=== PATIENT | female | born 1940 | race Caucasian/White ===

== ENCOUNTER → 2023-09-01 10:27 | Outpatient (REF) | payer OTHER, SELFPAY | LOC: HWRAD 10:27 | PROVIDERS: ATTENDING PHYSICIAN Orthopaedic Surgery Hand Surgery; FAMILY PHYSICIAN Family Medicine | DX: M25.512 Pain in left shoulder (principal) | CPT/HCPCS: 73200 ==

== ENCOUNTER → 2024-01-23 12:33 | Outpatient (REF) | payer OTHER, SELFPAY ==
[2023-11-10 13:38] VITALS: BMI 45.0
[2023-11-10 14:51] LABS: Hematocrit 37.8 % (37.0-47.0); Hemoglobin 13.6 g/dL (12.0-16.0); Mean Corpuscular Hgb 33.5 pg (27.0-31.0); Mean Corpuscular Volume 93.1 fL (81.0-99.0); Mean Platelet Volume 9.8 fL (7.4-10.4); Platelet Count 208 10^3/uL (130-400); Red Blood Cell Count 4.06 10^6/uL (4.20-5.40); Red Cell Dist. Width 11.4 % (11.5-14.5); White Blood Cell Count 9.4 10^3/uL (4.8-10.8)
[2023-11-10 15:28] LABS: ALT (SGPT) 21 U/L (0-35); AST (SGOT) 25 U/L (14-36); Albumin 4.3 g/dl (3.5-5.0); Alkaline Phosphatase 95 U/L (38-126); Blood Urea Nitrogen 30 mg/dl (7-17); Calcium 10.4 mg/dl (8.4-10.2); Carbon Dioxide 21 mmol/L (22-30); Chloride 104 mmol/L (98-107); Estimated Creatinine Clearance 33 ml/min; Glucose 131 mg/dl (70-99); Potassium 4.7 mmol/L (3.5-5.1); Sodium 141 mmol/L (135-145); Total Bilirubin 0.5 mg/dl (0.2-1.3); Total Protein 6.7 g/dl (6.3-8.2); eGFR 37.33
[2023-11-11 09:14] LABS: Glycohemoglobin (HgbA1c) 7.4 % (4.0-5.6)
== END ==
LOC: REG 12:33
PROVIDERS: ATTENDING PHYSICIAN Orthopaedic Surgery Hand Surgery; FAMILY PHYSICIAN Family Medicine
DX: M19.012 Primary osteoarthritis, left shoulder (principal)
CPT/HCPCS: 36415; 80053; 83036; 85027; 87070; 93005

== ENCOUNTER 2024-03-27 23:33 | Inpatient (IN) | payer OTHER, SELFPAY ==
[2024-03-27 20:05] VITALS: BP 240/109
[2024-03-27 20:41] VITALS: BMI 40.9
[2024-03-27 20:43] VITALS: BP 176/78
[2024-03-27 21:00] VITALS: BP 204/83
[2024-03-27 21:03] LABS: % Basophils 0.5 % (0-2); % Immature Granulocytes 0.4 % (0-0.5); % Lymphocytes 12.3 % (20.5-51.1); % Monocytes 5.5 % (1.7-9.3); % Neutrophils 78.3 % (42.2-75.2); Absolute Basophils 0.1 10^3/uL (0-0.2); Absolute Eosinophils 0.3 10^3/uL (0-0.7); Absolute Lymphocytes 1.2 10^3/uL (1.2-3.4); Absolute Monocytes 0.5 10^3/uL (0.1-0.6); Absolute Neutrophils 7.7 10^3/uL (1.4-6.5); Hematocrit 37.5 % (37.0-47.0); Mean Corp Hgb Conc. 34.7 g/dL (33.0-37.0); Mean Corpuscular Hgb 33.4 pg (27.0-31.0); Mean Corpuscular Volume 96.4 fL (81.0-99.0); Mean Platelet Volume 9.1 fL (7.4-10.4); Nucleated Red Blood Cells % 0 %; Platelet Count 187 10^3/uL (130-400); Red Blood Cell Count 3.89 10^6/uL (4.20-5.40); Red Cell Dist. Width 11.8 % (11.5-14.5); White Blood Cell Count 9.8 10^3/uL (4.8-10.8)
[2024-03-27 21:15] LABS: ALT (SGPT) 15 U/L (0-35); AST (SGOT) 21 U/L (14-36); Albumin 3.8 g/dl (3.5-5.0); Alkaline Phosphatase 92 U/L (38-126); Blood Urea Nitrogen 23 mg/dl (7-17); Calcium 9.4 mg/dl (8.4-10.2); Carbon Dioxide 25 mmol/L (22-30); Chloride 100 mmol/L (98-107); Estimated Creatinine Clearance 40 ml/min; Glucose 177 mg/dl (70-99); Lipase 96 U/L (23-300); Potassium 4.2 mmol/L (3.5-5.1); Sodium 134 mmol/L (135-145); Total Bilirubin 0.6 mg/dl (0.2-1.3); Total Protein 6.1 g/dl (6.3-8.2); eGFR 44.91
[2024-03-27 22:21] LABS: Urine Albumin Negative (Neg - Trace); Urine Bilirubin Negative (Negative); Urine Character Clear (Clear); Urine Color Straw; Urine Glucose Negative (Negative); Urine Ketone Negative (Negative); Urine Leukocyte 1+ (Negative); Urine Nitrite Positive (Negative); Urine Occult Blood Trace (Negative); Urine Urobilinogen Negative (Neg - 1+); Urine pH 6.5 (5.0-9.0)
[2024-03-27 22:29] LABS: Urine Bacteria Many (Negative); Urine White Cell 26-30 /HPF (0-5)
[2024-03-27 23:00] VITALS: BP 206/96
--- NOTE | 2024-03-27 23:01 | ED.GENMED ---
History of Present Illness
<Jose Boyce, DO - Last Filed: 03/27/24 23:16>
General
Chief Complaint: Abdominal Pain
Time Seen by Provider: 03/27/24 21:28
<Hayde Turk [employer] - Last Filed: 03/27/24 23:36>
General
Source: patient
Exam Limitations: none
Nursing documentation reviewed up to this point in time: agreed with
History of Present Illness
History of Present Illness:
Patient to ED with complaint of RLQ abd. pain. Pain started this afternoon. +nausea, no vomiting or diarrhea. No prior history of same. Denies fever/chills.
Past History
<Jose Boyce DO - Last Filed: 03/27/24 23:16>
Past History
ED Past Medical History: Cancer, HTN, Hypercholesterolemia and NIDDM
ED Past Surgical History: Gynecological and Orthopedic
Social History
Tobacco: Non-smoker
Alcohol: None
Drug: None
Personal: Single
Living: alone
Employment: Retired
Review of Systems
<Hayde Turk [employer] - Last Filed: 03/27/24 23:36>
Review of Systems
Allergies reviewed?: Yes
All Other Systems: ROS reviewed and negative except as documented in HPI and ROS
Constitutional: Reports no symptoms
EENT: Reports no symptoms
Respiratory: Reports no symptoms
Cardiac: Reports no symptoms
ABD/GI: Reports abdominal pain (RLQ)
: Reports no symptoms
Musculoskeletal: Reports no symptoms
Skin: Reports no symptoms
Neurological: Reports no symptoms
Psychiatric: Reports no symptoms
Phy Exam
<Hayde Turk [employer] - Last Filed: 03/27/24 23:36>
General Physical Exam
General Presentation: well appearing and mild distress
General age: appears stated age
General Skin: warm and dry
General Habitus: normal
General Mental: alert
Cardiovascular Exam
Cardiovascular Exam: regular rate/rhythm and no edema
Pulmonary Exam
Pulmonary Exam: lungs clear and no respiratory distress
Gastrointestinal Exam
Gastrointestinal Exam: normal bowel sounds, no pulsatile mass and other (Large firm mass RLQ)
Palpation: left upper quadrant: No tenderness, left lower quadrant: No tenderness, right upper quadrant: Moderate tenderness and right lower quadrant: Moderate tenderness
Musculoskeletal Exam
Musculoskeletal Exam: full ROM and neuro vasc intact
Skin Exam
Skin Exam: normal color, warm/dry and no rash
Psychiatric Exam
Psychiatric Exam: normal mood/affect
Course
<Jose Boyce, DO - Last Filed: 03/27/24 23:16>
Orders/Labs/Results
Orders:
Orders
03/27/24 20:55
Complete Blood Count/With Diff Urgent
Comprehensive Metabolic Panel Urgent
Lipase Urgent
03/27/24 21:36
CT Abd/pelvis W Iv Cont Urgent
Comment:
Reason For Exam: Right lower abd. pain
03/27/24 22:11
Urinalysis Reflex To Culture Urgent
Date Specimen was Collected: 03/27/24
Time Specimen was Collected: 22:08
Urine Microscopic Reflex Cult Urgent
Urine Culture Urgent
BRENDAN Source: U
Specimen Description:
Date Specimen was Collected: 03/27/24
Time Specimen was Collected: 22:08
03/27/24 23:09
Piperacillin/Tazo 4.5 Gram [Zosyn] 4.5 gram in 100 ml IV NOW
03/27/24 23:10
0.9% Sodium Chloride 1000 ml [Nss] 1,000 ml IV BOLUS
03/27/24 23:14
Lactic Acid Urgent
03/27/24 23:31
Admit/Transfer Patient As Directed
Co-Sign Provider:
Level of Care: Inpatient admission
Assign to:: Medical/Surgical
Physician / Group: latasha
Diagnosis: SBO
Reason for Hospitalization: SBO
Expected length of stay greater than two midnights?: Yes
ELOS- Estimated Length of Stay in days: 2
I certify the patient meets the requirements for IP care: Yes
Code Status As Directed
Resuscitation Status: Do not resuscitate
Reached after discussion with pt or family/Healthcare POA: Yes
DNR Bracelet Application ONCE
PRN Pain Medication Management As Directed
May give lesser potent ordered pain med per pt: Yes
preference::
Protocol:: Medication orders for pain may be administered in a
manner that supports deferring to patient preference
when the pt is:
- Requesting an ordered lesser potent pain medication.
Least to most potent pain medications are defined
as: acetaminophen < NSAID < tramadol < opioids
(morphine, oxycodone, hydromorphone).
- Requesting a lesser dose of the same medication IF
ORDERED.
- Requesting a less intrusive route of administration
if both routes are prescribed by the provider (PO <
IV).
Abnormal Lab Results
03/27/24 03/27/24
20:55 22:11
RBC 3.89 L 10^6/uL
(4.20-5.40)
MCH 33.4 H pg
(27.0-31.0)
Absolute Neuts (auto) 7.7 H 10^3/uL
(1.4-6.5)
Neutrophils % 78.3 H %
(42.2-75.2)
Lymphocytes % 12.3 L %
(20.5-51.1)
Sodium 134 L mmol/L
(135-145)
BUN 23 H mg/dl
(7-17)
Creatinine 1.2 H mg/dL
(0.6-1.0)
Glucose 177 H mg/dl
(70-99)
Total Protein 6.1 L g/dl
(6.3-8.2)
Ur Occult Blood Reflex Trace A
(Negative)
Urine Nitrite (Reflex) Positive A
(Negative)
Leukocyte Esterase Rfl 1+ A
(Negative)
Urine RBC 3-6 A /HPF
(0-2)
Urine WBC (Reflex) 26-30 A /HPF
(0-5)
Urine Bacteria (Reflex) Many A
(Negative)
03/27/24 20:55
03/27/24 20:55
Vital Signs
Initial and Last Documented VS:
Initial Vital Signs
Temp Pulse Resp BP Pulse Ox
98.4 F 85 20 240/109 98
03/27/24 20:05 03/27/24 20:05 03/27/24 20:05 03/27/24 20:05 03/27/24 20:05
Last Documented Vital Signs
Temp Pulse Resp BP Pulse Ox
98.6 F 89 20 206/96 98
03/27/24 20:43 03/27/24 23:30 03/27/24 23:30 03/27/24 23:00 03/27/24 23:30
Junelt;Hayde Turk NP - Last Filed: 03/27/24 23:36>
Orders/Labs/Results
Orders:
Orders
03/27/24 20:55
Complete Blood Count/With Diff Urgent
Comprehensive Metabolic Panel Urgent
Lipase Urgent
03/27/24 21:36
CT Abd/pelvis W Iv Cont Urgent
Comment:
Reason For Exam: Right lower abd. pain
03/27/24 22:11
Urinalysis Reflex To Culture Urgent
Date Specimen was Collected: 03/27/24
Time Specimen was Collected: 22:08
Urine Microscopic Reflex Cult Urgent
Urine Culture Urgent
BRENDAN Source: U
Specimen Description:
Date Specimen was Collected: 03/27/24
Time Specimen was Collected: 22:08
03/27/24 23:09
Piperacillin/Tazo 4.5 Gram [Zosyn] 4.5 gram in 100 ml IV NOW
03/27/24 23:10
0.9% Sodium Chloride 1000 ml [Nss] 1,000 ml IV BOLUS
03/27/24 23:14
Lactic Acid Urgent
03/27/24 23:31
Admit/Transfer Patient As Directed
Co-Sign Provider:
Level of Care: Inpatient admission
Assign to:: Medical/Surgical
Physician / Group: latasha
Diagnosis: SBO
Reason for Hospitalization: SBO
Expected length of stay greater than two midnights?: Yes
ELOS- Estimated Length of Stay in days: 2
I certify the patient meets the requirements for IP care: Yes
Code Status As Directed
Resuscitation Status: Do not resuscitate
Reached after discussion with pt or family/Healthcare POA: Yes
DNR Bracelet Application ONCE
PRN Pain Medication Management As Directed
May give lesser potent ordered pain med per pt: Yes
preference::
Protocol:: Medication orders for pain may be administered in a
manner that supports deferring to patient preference
when the pt is:
- Requesting an ordered lesser potent pain medication.
Least to most potent pain medications are defined
as: acetaminophen < NSAID < tramadol < opioids
(morphine, oxycodone, hydromorphone).
- Requesting a lesser dose of the same medication IF
ORDERED.
- Requesting a less intrusive route of administration
if both routes are prescribed by the provider (PO <
IV).
Abnormal Lab Results
03/27/24 03/27/24
20:55 22:11
RBC 3.89 L 10^6/uL
(4.20-5.40)
MCH 33.4 H pg
(27.0-31.0)
Absolute Neuts (auto) 7.7 H 10^3/uL
(1.4-6.5)
Neutrophils % 78.3 H %
(42.2-75.2)
Lymphocytes % 12.3 L %
(20.5-51.1)
Sodium 134 L mmol/L
(135-145)
BUN 23 H mg/dl
(7-17)
Creatinine 1.2 H mg/dL
(0.6-1.0)
Glucose 177 H mg/dl
(70-99)
Total Protein 6.1 L g/dl
(6.3-8.2)
Ur Occult Blood Reflex Trace A
(Negative)
Urine Nitrite (Reflex) Positive A
(Negative)
Leukocyte Esterase Rfl 1+ A
(Negative)
Urine RBC 3-6 A /HPF
(0-2)
Urine WBC (Reflex) 26-30 A /HPF
(0-5)
Urine Bacteria (Reflex) Many A
(Negative)
03/27/24 20:55
03/27/24 20:55
Vital Signs
Initial and Last Documented VS:
Initial Vital Signs
Temp Pulse Resp BP Pulse Ox
98.4 F 85 20 240/109 98
03/27/24 20:05 03/27/24 20:05 03/27/24 20:05 03/27/24 20:05 03/27/24 20:05
Last Documented Vital Signs
Temp Pulse Resp BP Pulse Ox
98.6 F 89 20 206/96 98
03/27/24 20:43 03/27/24 23:30 03/27/24 23:30 03/27/24 23:00 03/27/24 23:30
<Jose Boyce, DO - Last Filed: 03/27/24 23:16>
*Radiology
Radiology exam reviewed: radiology read reviewed (CT shows small bowel obstruction with spigelian hernia)
<Hayde Turk [employer] - Last Filed: 03/27/24 23:36>
*Radiology
Radiology exam reviewed: radiology read reviewed
*Pulse Oximetry
Patient hypoxic: no
*Critical Care Note
Total Time (30-74mins, 75-104mins- exclusive of procedures): Not Applicable
<Jose Boyce, DO - Last Filed: 03/27/24 23:16>
Patient Management
Discussion with other providers: Hospitalist and School Librarian (Dr. Rogers, will see in a.m.)
<Hayde Turk, [employer] - Last Filed: 03/27/24 23:36>
Update Note
Update Note:
Patient to ED with complaint of RLQ abd pain. Nausea, no vomiting. No fever/chills. CT confirms SBO with transition pt at spigelian hernia. Case discussed wt dr. boyce. Dr. Rogers consulted. WIll admit to hospitalists service.
ED Attending Note
<Jose Boyce, DO - Last Filed: 03/27/24 23:16>
ED Attending Note
Patient seen and examined by attending physician: Yes
ED Attending Note:
I reviewed and agree with history and treatment plan by Hayde Turk. Patient has right lower quadrant tenderness, CT scan consistent with spigelian hernia with small bowel obstruction. Attempted to reduce hernia without success. [place] text
sent to Dr. Rogers, general surgery. Admit to hospitalist. Also treat UTI.
-
Portions of this chart may have been created with voice recognition software.� Occasional wrong word or��sound alike� substitutions may have occurred due to the inherent limitations of voice recognition software.
Discharge Plan
Departure
Patient Disposition: Admit
Date of Disposition: 03/27/24
Time of Disposition: 23:02
Admit to: Med/Surg
Presentation/result/management discussed w/ accepting MD/DO: Hospitalist
Patient with high blood pressure during this ER visit?: Yes
Condition: Fair
Discharge Problem:
Small bowel obstruction, Spigelian hernia with bowel obstruction
Prescriptions:
No Action
metformin 500 mg Tablet
1,000 mg PO .DAILYINAM
metformin 500 mg Tablet
500 mg PO .DAILYINEVENING
metoprolol succinate 50 mg Tablet Extended Release 24 Hr
50 mg PO BID
niacinamide 500 mg Tablet
500 mg PO DAILY
omeprazole 20 mg Capsule,Delayed Release(Dr/Ec)
20 mg PO DAILY
lovastatin 20 mg Tablet
20 mg PO QPM
cholecalciferol (vitamin D3) [Vitamin D3] 10 mcg (400 unit) Capsule
10 mcg PO BID
aspirin 81 mg Capsule
81 mg PO DAILY
Referrals:
Ezra Aldridge MD [Family Provider] -
Interventions
Interventions:
*Risk Screen - Suicide Last Done: 03/27/24 20:05
*General Assessment Last Done: 03/27/24 20:05
*Neglect/Abuse Screening Last Done: 03/27/24 20:05
ED- Fall Risk Assessment Last Done: 03/27/24 20:05
*ED COVID-19 Vaccine History Last Done: 03/27/24 20:05
KN-Dvdqbw-Rfitreqljd Assessment Last Done: 03/27/24 20:45
Discharge Date and Time
Print Language: ESTONIAN
[2024-03-27] MEDS: NSS 1000 IV (23:25)
[2024-03-27 23:31] LABS: Lactic Acid 1.5 mmol/L (0.7-2.0)
[2024-03-27] MEDS: ZOSYN 100 IV (23:31)
--- NOTE | 2024-03-27 23:37 | HPS.HSE ---
Family Physician
-
Family Physician: Ezra Aldridge
Chief Complaint
-
abdominal pain
History of Present Illness
83-year-old female past medical history of uterine cancer status post total abdominal hysterectomy in 2012, umbilical hernia repair in 2012, prior cholecystectomy 1990, hypertension, hypercholesteremia, GERD, diabetes, presenting with right lower
quadrant abdominal pain which started this afternoon. Has nausea without vomiting or diarrhea. Denies fevers or chills. She did feel constipated and had a hard bowel movement at 12 PM today. She did take Dulcolax to help with this without
improvement.
She denies any urinary symptoms.
She does not smoke or drink alcohol.
Medical History
Past Medical History
Past Medical History: Reports Other ( uterine cancer status post total abdominal hysterectomy in 2012, umbilical hernia repair in 2012, prior cholecystectomy 1990, hypertension, hypercholesteremia, GERD, diabetes)
Past Surgical History: Reports Other (hysrecetomy, cholecystectomy )
Social History
Tobacco: Non-smoker
Alcohol: None
Drug: None
Family History
Family History: Not pertinent
Allergies / Home Medications
Allergies reflects when Allergies were last updated in [employer] [facility].
Home Medications with original date entered in [employer] [facility]
Allergy/Medication List:
Allergies
Allergy/AdvReac Type Severity Reaction Status Date / Time
dust, mold Allergy nasal Uncoded 03/27/24 20:41
symptoms
Home Medications
aspirin 81 mg capsule 81 mg PO DAILY 03/27/24
cholecalciferol (vitamin D3) 10 mcg (400 unit) capsule (Vitamin D3) 10 mcg PO BID 03/27/24
lovastatin 20 mg tablet 20 mg PO QPM 03/27/24
metformin 500 mg tablet 1,000 mg PO .DAILYINAM 03/27/24
metformin 500 mg tablet 500 mg PO .DAILYINEVENING 03/27/24
metoprolol succinate 50 mg tablet,extended release 24 hr 50 mg PO BID 03/27/24
niacinamide 500 mg tablet 500 mg PO DAILY 03/27/24
omeprazole 20 mg capsule,delayed release 20 mg PO DAILY 03/27/24
Review of Systems
-
History Source: Patient
A 12 point ROS was completed and negative except as noted: Yes
Constitutional: Reports No Symptoms
EENT: Reports No Symptoms
Respiratory: Reports No Symptoms
Cardiac: Reports No Symptoms
Abdomen/GI: Reports See HPI
: Reports No Symptoms
Musculoskeletal: Reports No Symptoms
Skin: Reports No Symptoms
Neurological: Reports No Symptoms
Endocrine: Reports No Symptoms
Hematologic/Lymphatic: Reports No Symptoms
Psych: Reports No Symptoms
Physical Exam
Vital Signs
Vital Signs
Temp Pulse Resp BP Pulse Ox
98.6 F 89 20 206/96 98
03/27/24 20:43 03/27/24 23:30 03/27/24 23:30 03/27/24 23:00 03/27/24 23:30
Physical Exam
General: Well Developed, Well Nourished and No Apparent Distress
HEENT: NormoCephalic, Moist mucous membranes and Atraumatic
Respiratory: Clear
Cardiac: S1/S2 and Regular Rhythm; No Murmur or Rub
GI: Soft, Non Distended, Normal Bowel Sounds and Tender (RLQ, nontender hernia ); No Organomegaly
Rectal: Deferred by Provider
Musculoskeletal: No Clubbing, No Cyanosis and No Edema
Skin: No Rash
Neuro: Nonfocal/grossly intact
Laboratory Results
-
03/27/24 20:55
03/27/24 20:55
Laboratory Results
Lactic Acid 1.5 mmol/L (0.7-2.0) 03/27/24 23:14
Total Bilirubin 0.6 mg/dl (0.2-1.3) 03/27/24 20:55
AST 21 U/L (14-36) 03/27/24 20:55
ALT 15 U/L (0-35) 03/27/24 20:55
Alkaline Phosphatase 92 U/L (38-126) 03/27/24 20:55
Lipase 96 U/L (23-300) 03/27/24 20:55
Data Reviewed
-
Lab Data: Labs Reviewed by me
Old Records: Reviewed
Impression/Plan
-
IMPRESSION:
PLAN:
# Distal small bowel obstruction
-CT scan shows transition point at the site of the right lower quadrant spigelian hernia
-N.p.o.
-IV fluids
-Zofran, Dilaudid
-General Surgery consulted
# UTI
-More likely asymptomatic pyuria
-Urine culture pending
-No symptoms
-Given Zosyn, continue as ceftriaxone
# Uncontrolled hypertension secondary to pain
-Continue metoprolol
-As needed hydralazine as needed
-Hold aspirin
History of umbilical hernia repair in 2012
Moderate hiatal hernia/GERD
-Continue omeprazole
Hypercholesterolemia
-Hold statin
Type 2 diabetes
-Hold metformin
-Insulin sliding scale
Urine cancer status post hysterectomy in 2012
DNR/DNI
DVT prophylaxis�heparin
N.p.o.
[2024-03-28] VITALS (13 sets, daily range): BP systolic 104–226; BP diastolic 62–93; BMI 39.2
[2024-03-28] MEDS: TOPROL XL PO (00:30)
[2024-03-28] MEDS: LOPRESSOR 50 MG PO (00:34)
[2024-03-28] MEDS: NSS 1000 IV ×3 (02:42→21:50)
[2024-03-28] MEDS: ROCEPHIN 1000 MG IV (02:49)
[2024-03-28] MEDS: STERILE WATER FOR INJECTION 10 ML IV (02:50)
--- NOTE | 2024-03-28 04:15 | PTCARENOTE ---
Pt arrived via stretcher at 0200 from ED. Pt was able to ambulate X1 to bed. Pt AAOX3, no complaints of pain, VSS. Head to toe assessment complete. IVF infusing. Pt friend at bedside. Bed in lowest position and locked. call dinh within reach.
[2024-03-28 06:20] LABS: % Basophils 0.5 % (0-2); % Eosinophils 3.8 % (0-6); % Immature Granulocytes 0.5 % (0-0.5); % Monocytes 6.9 % (1.7-9.3); % Neutrophils 75.3 % (42.2-75.2); Absolute Basophils 0.1 10^3/uL (0-0.2); Absolute Eosinophils 0.4 10^3/uL (0-0.7); Absolute Immature Granulocytes 0.1 10^3/uL (0-0.05); Absolute Lymphocytes 1.2 10^3/uL (1.2-3.4); Absolute Monocytes 0.7 10^3/uL (0.1-0.6); Absolute Neutrophils 7.2 10^3/uL (1.4-6.5); Hematocrit 38.9 % (37.0-47.0); Hemoglobin 13.6 g/dL (12.0-16.0); Mean Corpuscular Volume 97.3 fL (81.0-99.0); Mean Platelet Volume 9.4 fL (7.4-10.4); Nucleated Red Blood Cells % 0 %; Platelet Count 206 10^3/uL (130-400); Red Cell Dist. Width 11.7 % (11.5-14.5); White Blood Cell Count 9.6 10^3/uL (4.8-10.8)
[2024-03-28 06:22] LABS: Glucose - Point of Care 155 mg/dl (70-99)
[2024-03-28 06:43] LABS: ALT (SGPT) 15 U/L (0-35); AST (SGOT) 23 U/L (14-36); Albumin 3.7 g/dl (3.5-5.0); Alkaline Phosphatase 101 U/L (38-126); Blood Urea Nitrogen 18 mg/dl (7-17); Calcium 9.3 mg/dl (8.4-10.2); Carbon Dioxide 26 mmol/L (22-30); Chloride 101 mmol/L (98-107); Estimated Creatinine Clearance 40 ml/min; Glucose 160 mg/dl (70-99); Sodium 138 mmol/L (135-145); Total Bilirubin 0.8 mg/dl (0.2-1.3); Total Protein 6.1 g/dl (6.3-8.2); eGFR 44.91
[2024-03-28] MEDS: ZOFRAN 4 MG IV (07:45)
[2024-03-28] MEDS: NOVOLOG FLEXPEN-LOW RESISTANCE 1 UNITS SC ×2 (07:45→13:01)
[2024-03-28] MEDS: HEPARIN 5000 UNITS SC ×2 (07:51→20:18)
[2024-03-28] MEDS: TOPROL XL 50 MG PO ×2 (08:45→20:17)
[2024-03-28] MEDS: PROTONIX 40 MG PO (08:46)
--- NOTE | 2024-03-28 09:01 | W.PN.HOSP.TC ---
Today's Communication/Plan
-
N.p.o.
IV fluids
Await surgery
Recheck blood pressure
Assessment / Plan
Assessment / Plan
Gen-AAOx3, NAD, obese
HEENT-NC, AT, anicteric, clear oral mm
Neck-supple
CV-reg, no M, +S1/S2
Lungs-clear B/L
Abd-soft, nondistended, mild right lower quadrant tenderness without guarding
Ext-no edema
Musculoskeletal-no cyanosis, clubbing
Skin-warm and dry
Neuro-grossly non-focal
Psych-calm, cooperative
Hypertensive urgency -suspect due to pain, bowel obstruction, nausea. Needs to start checking her blood pressures at home. Explained that she would likely need more than 1 blood pressure medicine moving forward. Metoprolol resumed.
SBO -continue IV fluids, NPO. Awaiting surgery today. CT shows distal SBO with transition point in right lower quadrant spigelian hernia, smaller fat and fluid containing umbilical/periumbilical hernias.
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
Hyponatremia -improved.
Asymptomatic pyuria -stop antibiotics.
Hyperlipidemia -hold lovastatin for now.
DM 2 without hyperglycemia -glucose 160 this morning. Hold metformin. Use low resistance scale insulin. Hemoglobin A1c pending.
Morbid obesity due to excess calories
DNR
Anticipated Discharge: > 48 hours
Subjective/Interval History
-
Date of Service: March 28, 2024
Patient seen and examined. Currently denies pain. Complaining of dry mouth.
Objective Data
-
Labs:
Laboratory Results
03/27/24 03/28/24
20:55 05:42
WBC 9.8 9.6
Hgb 13.0 13.6
Hct 37.5 38.9
Plt Count 187 206
Sodium 134 L 138
Potassium 4.2 4.0
Chloride 100 101
Carbon Dioxide 25 26
BUN 23 H 18 H
Creatinine 1.2 H 1.2 H
Glucose 177 H 160 H
Calcium 9.4 9.3
Total Bilirubin 0.6 0.8
AST 21 23
ALT 15 15
Alkaline Phosphatase 92 101
Vital Signs:
Vital Signs
Temp Pulse Resp BP Pulse Ox
98.1 F 79 18 196/83 97
03/28/24 07:16 03/28/24 08:45 03/28/24 07:16 03/28/24 08:45 03/28/24 07:16
I&O
03/27/24 03/28/24 03/29/24
06:59 06:59 06:59
Intake Total 640 / 640
Balance 640 / 640
Review of Systems
-
History Source: Patient
All other systems: Reviewed and negative
--- NOTE | 2024-03-28 10:37 | CON.GS ---
Addendum entered and electronically signed by Manas Rogers MD 03/28/24 13:29:
I saw and examined the patient.
The [employer] Machine Operator's note was reviewed and I agree with the note.
Comment: Tender mass to RLQ a/w nausea after straining for BM. Long hx of constipation. AFVSS no leukocytosis. CT with colon and sb in right spigelian hernia without overt signs of bowel threat or compromise. Unable to reduce the hernia at bedside.
OCTOR for ventral hernia repair, possible ex lap, possible bowel resection.
Original Note:
Medical History
-
Chief Complaint: abdominal pain
History of Present Illness:
Ms Villanueva is an 83 yo female with a h/o hysterectomy (management of uterine ca), cholecystectomy, UHR, HTN and DM who presents with RLQ pain which began yesterday when she was sitting at her computer. She notes that prior to this, she had been
straining to have a BM and has also recently recovered from a long episode of bronchitis with a good deal of coughing. She had noted nausea in addition to the pain and had a friend bring her to the ER for evalation. Nausea persisted through this am
and she has been unable to pass flatus. She has a noted hernia to the right lateral abdomen which is unable to be reduced.
Past Medical History
Past Medical History: Cancer (uterine), GERD, HTN and Hypercholesterolemia
Past Surgical History: Cholecystectomy, Gynecological (RADHA) and Hernia Repair (UHR)
Social History
Tobacco: Non-Smoker
Alcohol: None
Family History
Family History: Reviewed & Not Pertinent
Allergies / Home Medications
Allergy/AdvReac Type Severity Reaction Status Date / Time
dust, mold Allergy nasal Uncoded 03/27/24 20:41
symptoms
�Medication �Instructions �Recorded �Confirmed �Type
aspirin 81 mg capsule 81 mg PO DAILY Blood Clot 03/27/24 03/27/24 History
Prevention/Tx
cholecalciferol (vitamin D3) 10 10 mcg PO BID Supplement 03/27/24 03/27/24 History
mcg (400 unit) capsule (Vitamin D3)
lovastatin 20 mg tablet 20 mg PO QPM High Cholesterol 03/27/24 03/27/24 History
metformin 500 mg tablet 1,000 mg PO .DAILYINAM Diabetes 03/27/24 03/27/24 History
metformin 500 mg tablet 500 mg PO .DAILYINEVENING Diabetes 03/27/24 03/27/24 History
metoprolol tartrate 50 mg tablet 50 mg PO BID Blood Pressure 03/27/24 History
niacinamide 500 mg tablet 500 mg PO DAILY Supplement 03/27/24 03/27/24 History
omeprazole 20 mg capsule,delayed 20 mg PO DAILY GERD 03/27/24 03/27/24 History
release
Review of Systems
-
History Source: Patient
All other systems: Negative unless noted
A 10 point review of systems was completed, and was negative except as per HPI.
Physical Exam
Vital Signs
Temp Pulse Resp BP Pulse Ox
98.1 F 79 18 196/83 97
03/28/24 07:16 03/28/24 08:45 03/28/24 07:16 03/28/24 08:45 03/28/24 07:16
03/27/24 03/28/24 03/29/24
06:59 06:59 06:59
Actual Weight 100.335 kg
Body Mass Index (BMI) 39.2
Lab Results
03/28/24 05:42
03/28/24 05:42
WBC 9.6 10^3/uL (4.8-10.8) 03/28/24 05:42
Hgb 13.6 g/dL (12.0-16.0) 03/28/24 05:42
Hct 38.9 % (37.0-47.0) 03/28/24 05:42
Plt Count 206 10^3/uL (130-400) 03/28/24 05:42
Abs Immat Gran (auto) 0.1 10^3/uL (0-0.05) H 03/28/24 05:42
Neutrophils % 75.3 % (42.2-75.2) H 03/28/24 05:42
Physical Exam
General: Well Developed and Well Nourished
HEENT: Moist Mucous Membranes
Respiratory: Non Labored Respirations
GI: Soft, Tender (right lateral abdominal wall hernia: tender, unable to reduce. No overlying skin changes), Distended and Obese
Skin: Warm
Neuro: Awake, Alert and AO x 3
Psych: Calm
Data Reviewed
-
CT Scan: Image Personally Visualized and interpreted, Report Reviewed by me, Discussed with Physician, Discussed with Nurse and Discussed with Patient
Labs: Labs Reviewed by me, Discussed with Physician, Discussed with Nurse and Discussed with Patient
Old Records: Reviewed
Assessment / Plan
-
83 yo female h/o hysterectomy (management of uterine ca), cholecystectomy, UHR, HTN and DM who presents with RLQ pain which began yesterday with nausea and absence of flatus. CT imaging reviewed with incarcerated spigelian hernia present on the
right resulting in an upstream bowel obstruction. The hernia was unable to be reduced at bedside. ABX initiated in the ED for abnormal UA. No leukocytosis. No fevers, elevated bp, vitals otherwise stable.
Keep NPO
Will plan OR today for hernia repair/reduction. Did discuss with patient that given her high BMI there is a high rate of hernia recurrence. Unfortunately, as the hernia is unable to be reduced at bedside will need to proceed with surgery.
--- NOTE | 2024-03-28 11:11 | CM ---
Reviewed the chart notes and spoke with the patient's friend (senior administrative assistant's spouse) at bedside, patient in OR. The patient resides alone in an apartment with elevator access ([address] [place]). The patient has a cane and shower grab bars in the home. Per
friend, patient has had VN in past, but did not know the name of the agency. Confirmed patient's PCP is Dr. Ezra Ford and pharmacy is [facility]. CM continues to be available to patient/family and is monitoring medical plan for needs at
discharge.
Plan: Discharge plans will depend on the patient's progress.
--- NOTE | 2024-03-28 11:59 | W.IMMPOSTOP ---
Addendum entered and electronically signed by Manas Rogers MD 03/28/24 13:39:
Addendum: Procedure: appendectomy
Original Note:
Surgical Immed Post Op Note
-
Primary Surgeon: Sue
Assisting: Ellie MONTESINOS
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
Post-op Diagnosis: Same
Procedure Performed: Open primary repair of incarcerated spigelian hernia or right lower quadrant
Anesthesia Type: GETA
Specimen / Cultures: None
Estimated Blood Loss: 10cc
Complications: None immediate
Operative Findings: 4cm defect extended to 6cm, viable cecum and terminal ileum in the sac; appendectomy with 2-0 silk ties; primary closure in layers with #1 PDS stratafix for transveralis fascia, external oblique aponeurosis closed with 2-0 PDS
stratafix suture
[2024-03-28 12:03] LABS: Glycohemoglobin (HgbA1c) 7.5 % (4.0-5.6)
--- NOTE | 2024-03-28 12:04 | OR.RPT ---
Operative Report
Operative Report
Primary Surgeon: Sue
Assisting: Ellie MONTESINOS
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
Post-op Diagnosis: Same
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
Anesthesia Type: GETA
Specimen / Cultures: None
Estimated Blood Loss: 10cc
Complications: None immediate
Operative Findings: 4cm defect extended to 6cm, viable cecum and terminal ileum in the sac; appendectomy with 2-0 silk ties; primary closure in layers with #1 PDS stratafix for transversalis fascia, external oblique aponeurosis closed with 2-0 PDS
stratafix suture
Date of Surgery: 03/28/24
Indications: This 83F developed a painful mass at her right lower quadrant after straining for a BM. Imaging identified a right spigelian hernia containing bowel. The hernia was incarcerated. Open primary repair of ventral hernia was planned.
Description of procedure: The patient was placed on the operating table in the supine position. General anesthesia was induced. A time-out was completed verifying correct patient, procedure, site, positioning, and special equipment prior to
beginning this procedure. An orogastric tube was placed. The abdomen was prepped and draped in the usual sterile fashion. Orogastric tube was placed. An incision was made over the hernia with a #10 blade and carried down to the hernia sac with
electrocautery. The sac was freed circumferentially from attachments with blunt dissection and electrocautery. The neck of the hernia was isolated taking care not to reduce the contents. The sac was opened and the cecum, terminal ileum and appendix
were inspected and appeared healthy. The defect was extended slightly to allow the bowel to be extracorporealized for several centimeters and this area of the bowel was also noted to be healthy. The appendix was then taken with 2-0 silk ties x2 on
the cecum side and x1 on the specimen side and the appendix was transected with metzenbaum mendez. The stump was hemostatic. The blood supply was diminutive and was controlled with cautery. The cecum and terminal ileum were returned to the abdomen
and the transversalis fascia was closed with #1 PDS stratatfix suture. The external oblique aponeurosis was then closed with 2-0 PDS Stratafix suture with minimal tension. Vviien's fascia was closed with interrupted 2-0 vicryl sutures. The skin was
closed in layers with 2-0 vicryl deep dermal interrupted sutures and a subcuticular sutures of 4-0 monocryl. Topical skin adhesive was applied. The orogastric tube was removed.
The patient tolerated the procedure well and was taken to the postanesthesia care unit in stable condition.
[2024-03-28 12:12] LABS: Glucose - Point of Care 163 mg/dl (70-99)
[2024-03-28] MEDS: COMPAZINE 10 MG IV (13:39)
[2024-03-28 17:46] LABS: Glucose - Point of Care 235 mg/dl (70-99)
[2024-03-28] MEDS: NOVOLOG FLEXPEN-LOW RESISTANCE 2 UNITS SC (18:00)
[2024-03-28] MEDS: TORADOL 15 MG IV (21:54)
[2024-03-29] VITALS (7 sets, daily range): BP systolic 134–159; BP diastolic 57–85; PULSE 73–74; O2SAT 95–96
[2024-03-29 00:31] LABS: Glucose - Point of Care 172 mg/dl (70-99)
[2024-03-29] MEDS: NOVOLOG FLEXPEN-LOW RESISTANCE 1 UNITS SC ×3 (00:39→18:08)
[2024-03-29] MEDS: NOVOLOG FLEXPEN-LOW RESISTANCE SC ×2 (06:24→12:35)
[2024-03-29 06:25] LABS: Glucose - Point of Care 143 mg/dl (70-99)
[2024-03-29 07:02] LABS: Blood Urea Nitrogen 17 mg/dl (7-17); Calcium 8.3 mg/dl (8.4-10.2); Carbon Dioxide 23 mmol/L (22-30); Chloride 103 mmol/L (98-107); Estimated Creatinine Clearance 44 ml/min; Glucose 150 mg/dl (70-99); Potassium 4.1 mmol/L (3.5-5.1); Sodium 136 mmol/L (135-145); eGFR 49.86
[2024-03-29] MEDS: HEPARIN 5000 UNITS SC ×2 (08:14→19:35)
[2024-03-29] MEDS: PROTONIX 40 MG PO (08:14)
[2024-03-29] MEDS: TOPROL XL 50 MG PO ×2 (08:14→19:36)
[2024-03-29] MEDS: NSS IV (08:15)
--- NOTE | 2024-03-29 09:52 | W.PN.GS2 ---
Today's Communication / Plan
-
ADAT
Assessment / Plan
-
83 yo female presenting with incarcerated spigelian hernia now POD #1 open primary repair with appendectomy
AFVSS
Passing flatus, no further n/v. Following for continued bowel recovery
Following expected post operative course
+UTI with cx showing GNB
--Advance diet as tolerated
--Diabetic management as per primary team
--Bowel regimen initiated, patient to continue at home
--D/C IVF
--Analgesics prn, will add PO options
--Resume IV ABX, await final urine cx
Subjective Data
-
Date of Service: March 29, 2024
Patient seen and examined at bedside with Dr. Philip. Ross n/v. Tolerating clears. Soreness to incision but minimal pain. Passing flatus.
Objective Data
-
Intake and Output
03/28/24 03/29/24 03/30/24
06:59 06:59 06:59
Intake Total 640 / 640 1250 / 1250
Output Total
Balance 640 / 640 1249 / 1249
Intake:
Oral fluids 240 / 240
IV fluids (Total) 400 / 400 1250 / 1250
normosol 50 / 50
Output:
Urine, Voided
Other:
Number of approximated MODERATE 1
amounts of urine
How many times incontinent 3
MODERATE amount urine
Vital Signs
Temp Pulse Resp BP Pulse Ox
97.4 F 81 16 145/82 96
03/29/24 07:20 03/29/24 07:20 03/29/24 07:20 03/29/24 07:20 03/29/24 07:20
Lab Results
03/28/24 05:42
03/29/24 04:48
Calcium 8.3 mg/dl (8.4-10.2) L 03/29/24 04:48
Total Bilirubin 0.8 mg/dl (0.2-1.3) 03/28/24 05:42
AST 23 U/L (14-36) 03/28/24 05:42
ALT 15 U/L (0-35) 03/28/24 05:42
Alkaline Phosphatase 101 U/L (38-126) 03/28/24 05:42
Total Protein 6.1 g/dl (6.3-8.2) L 03/28/24 05:42
Albumin 3.7 g/dl (3.5-5.0) 03/28/24 05:42
Physical Exam
-
NAD
ABD soft, nd, expected incisional tenderness
Right lateral abd incision with intact glue, some ecchymosis
BLLE with chronic edema/serous blister has popped without erythema
Patient has a marshall catheter: No
Patient has a central line: No
[2024-03-29] MEDS: STERILE WATER FOR INJECTION 10 ML IV (10:43)
[2024-03-29] MEDS: MIRALAX 17 GRAMS PO (10:43)
[2024-03-29] MEDS: ROCEPHIN 1000 MG IV (10:44)
[2024-03-29] MEDS: FLUSH (NSS) 1 FLUSH IV (10:45)
[2024-03-29 12:10] LABS: Glucose - Point of Care 166 mg/dl (70-99)
--- NOTE | 2024-03-29 12:21 | PTOTSP ---
pt currently requires supervision to minimal assistance to complete simple ADLs, functional transfers, ambulation. pt has adaptive equipment to complete LB dressing at home. no acute OT needs identified at this time. will sign off.
--- NOTE | 2024-03-29 13:08 | W.PN.HOSP.TC ---
Today's Communication/Plan
-
Monitor vital signs see plan
Continue antibiotics
Monitor symptoms with diet
Assessment / Plan
Assessment / Plan
Gen-AAOx3, NAD, obese
HEENT-NC, AT, anicteric, clear oral mm
Neck-supple
CV-reg, no M, +S1/S2
Lungs-clear B/L
Abd-soft, nondistended, mild right lower quadrant tenderness without guarding
Ext-no edema
Musculoskeletal-no cyanosis, clubbing
Skin-warm and dry
Neuro-grossly non-focal
Psych-calm, cooperative
Hypertensive urgency -suspect due to pain, bowel obstruction, nausea. Needs to start checking her blood pressures at home. Explained that she would likely need more than 1 blood pressure medicine moving forward. Metoprolol resumed.
If blood pressure continues to be elevated then will start amlodipine
SBO - CT shows distal SBO with transition point in right lower quadrant spigelian hernia, smaller fat and fluid containing umbilical/periumbilical hernias.
s/p open primary repair with appendectomy
Now with small BM, passing flatus. Started diet
UTI
urine cx gram-negative rods
Continue ceftriaxone
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
Hyponatremia -improved.
Hyperlipidemia -hold lovastatin for now.
DM 2 without hyperglycemia - Hold metformin. Use low resistance scale insulin. Hemoglobin A1c pending.
Morbid obesity due to excess calories
DNR
Anticipated Discharge: Within 24 hours
Subjective/Interval History
-
Date of Service: March 29, 2024
denies pain
Objective Data
-
Labs:
Laboratory Results
03/29/24
04:48
Sodium 136
Potassium 4.1
Chloride 103
Carbon Dioxide 23
BUN 17
Creatinine 1.1 H
Glucose 150 H
Calcium 8.3 L
Vital Signs:
Vital Signs
Temp Pulse Resp BP Pulse Ox
97.5 F 74 16 159/85 95
03/29/24 11:34 03/29/24 11:34 03/29/24 11:34 03/29/24 11:34 03/29/24 11:34
I&O
03/28/24 03/29/24 03/30/24
06:59 06:59 06:59
Intake Total 640 / 640 1250 / 1250
Output Total
Balance 640 / 640 1249 / 1249
[2024-03-29] MEDS: TYLENOL 1000 MG PO ×2 (15:52→21:57)
--- NOTE | 2024-03-29 16:00 | CM ---
Chart reviewed
PT - HH vs no needs - declining HH
CM available for discharge needs
Plan - anticipate home no needs vs w/VN when medically ready
[2024-03-29 18:06] LABS: Glucose - Point of Care 161 mg/dl (70-99)
[2024-03-29 21:51] LABS: Glucose - Point of Care 196 mg/dl (70-99)
[2024-03-30] MEDS: TORADOL 15 MG IV (01:58)
[2024-03-30 07:10] VITALS: BP 150/69
[2024-03-30 07:42] LABS: % Basophils 0.6 % (0-2); % Eosinophils 6.3 % (0-6); % Immature Granulocytes 0.5 % (0-0.5); % Lymphocytes 16.1 % (20.5-51.1); % Monocytes 8.1 % (1.7-9.3); % Neutrophils 68.4 % (42.2-75.2); Absolute Basophils 0.1 10^3/uL (0-0.2); Absolute Eosinophils 0.6 10^3/uL (0-0.7); Absolute Immature Granulocytes 0.1 10^3/uL (0-0.05); Absolute Lymphocytes 1.5 10^3/uL (1.2-3.4); Absolute Monocytes 0.8 10^3/uL (0.1-0.6); Absolute Neutrophils 6.4 10^3/uL (1.4-6.5); Blood Urea Nitrogen 22 mg/dl (7-17); Calcium 8.5 mg/dl (8.4-10.2); Carbon Dioxide 25 mmol/L (22-30); Chloride 100 mmol/L (98-107); Estimated Creatinine Clearance 37 ml/min; Glucose 138 mg/dl (70-99); Hematocrit 35.5 % (37.0-47.0); Hemoglobin 12.5 g/dL (12.0-16.0); Mean Corp Hgb Conc. 35.2 g/dL (33.0-37.0); Mean Corpuscular Hgb 34.2 pg (27.0-31.0); Mean Corpuscular Volume 97.3 fL (81.0-99.0); Mean Platelet Volume 9.9 fL (7.4-10.4); Nucleated Red Blood Cells % 0 %; Platelet Count 186 10^3/uL (130-400); Red Blood Cell Count 3.65 10^6/uL (4.20-5.40); Red Cell Dist. Width 12.1 % (11.5-14.5); Sodium 134 mmol/L (135-145); White Blood Cell Count 9.4 10^3/uL (4.8-10.8)
[2024-03-30] MEDS: MIRALAX 17 GRAMS PO (07:54)
[2024-03-30] MEDS: HEPARIN 5000 UNITS SC (07:54)
[2024-03-30] MEDS: TOPROL XL 50 MG PO (07:54)
[2024-03-30] MEDS: PROTONIX 40 MG PO (07:54)
[2024-03-30 08:10] LABS: Glucose - Point of Care 150 mg/dl (70-99)
[2024-03-30] MEDS: NOVOLOG FLEXPEN-LOW RESISTANCE 1 UNITS SC ×2 (08:10→12:07)
--- NOTE | 2024-03-30 08:13 | W.PN.GS2 ---
Today's Communication / Plan
-
--OK for DC from surgical perspective
--Pain control: Tylenol and Oxycodone, holding Toradol given baseline mild CKD
--Abx: Ceftriaxone, await final urine cx, ultimate decision per Hospitalist
Assessment / Plan
-
83 yo female presenting with incarcerated spigelian hernia now POD #2 open primary repair with appendectomy
AFVSS
Labs reviewed: normal WBC, stable Hb, normal electrolytes, mild elevation in creatinine at baseline
+UTI with cx showing GNB
Following expected post operative course. Okay for DC from surgical perspective; needs plan for UTI management
--Carb control diet
--Pain control: Tylenol and Oxycodone, holding Toradol given baseline mild CKD
--Diabetic management as per primary team
--Bowel regimen initiated, patient to continue at home
--Abx: Ceftriaxone, await final urine cx, ultimate decision per Hospitalist
--F/u with Dr. Rogers in 2-4 weeks
Subjective Data
-
Date of Service: March 30, 2024
No complaints. Pain well-controlled. Tolerating a diet moving her bowels without any issues. No nausea or emesis. No fevers. Ambulating. Voiding.
Objective Data
-
Intake and Output
03/29/24 03/30/24 03/31/24
06:59 06:59 06:59
Intake Total 1250 / 1250 1759
Output Total
Balance 1249 / 1249 1759
Intake:
Oral fluids 1759 176
IV fluids (Total) 1250 / 1250
normosol 50 / 50
Output:
Urine, Voided
Other:
Number of approximated MODERATE 1
amounts of urine
Number of approximated LARGE 1
amounts of urine
How many times incontinent 3
MODERATE amount urine
Vital Signs
Temp Pulse Resp BP Pulse Ox
97.8 F 74 24 134/65 98
03/29/24 23:08 03/29/24 23:08 03/29/24 23:08 03/29/24 23:08 03/29/24 23:08
Lab Results
03/30/24 04:56
03/30/24 04:56
Calcium 8.5 mg/dl (8.4-10.2) 03/30/24 04:56
Total Bilirubin 0.8 mg/dl (0.2-1.3) 03/28/24 05:42
AST 23 U/L (14-36) 03/28/24 05:42
ALT 15 U/L (0-35) 03/28/24 05:42
Alkaline Phosphatase 101 U/L (38-126) 03/28/24 05:42
Total Protein 6.1 g/dl (6.3-8.2) L 03/28/24 05:42
Albumin 3.7 g/dl (3.5-5.0) 03/28/24 05:42
Physical Exam
-
Gen: NAD
Abd: obese, soft, NT/ND, non-peritoneal, incision c/d/i - no erythema, ecchymosis or drainage
Patient has a marshall catheter: No
Patient has a central line: No
[2024-03-30 09:27] VITALS: BP 144/82; PULSE 80; O2SAT 98
--- NOTE | 2024-03-30 10:10 | CM ---
Met with pt
Poss d/c today
Has ride
Declined HH
Given IMM
Plan - anticipate home no needs
[2024-03-30] MEDS: ROCEPHIN 1000 MG IV (10:50)
[2024-03-30] MEDS: STERILE WATER FOR INJECTION 10 ML IV (10:50)
--- NOTE | 2024-03-30 11:32 | W.PN.HOSP.TC ---
Today's Communication/Plan
-
Monitor vital signs see plan
Switch antibiotics to oral
Discharge today
Patient will follow-up with surgery outpatient
Time of discharge 37 minutes
Assessment / Plan
Assessment / Plan
Gen-AAOx3, NAD, obese
HEENT-NC, AT, anicteric, clear oral mm
Neck-supple
CV-reg, no M, +S1/S2
Lungs-clear B/L
Abd-soft, nondistended, mild right lower quadrant tenderness without guarding
Ext-no edema
Musculoskeletal-no cyanosis, clubbing
Skin-warm and dry
Neuro-grossly non-focal
Psych-calm, cooperative
Hypertensive urgency -suspect due to pain, bowel obstruction, nausea. Needs to start checking her blood pressures at home. Explained that she would likely need more than 1 blood pressure medicine moving forward. Metoprolol resumed.
If blood pressure continues to be elevated then will start amlodipine
SBO - CT shows distal SBO with transition point in right lower quadrant spigelian hernia, smaller fat and fluid containing umbilical/periumbilical hernias.
s/p open primary repair with appendectomy
Now with small BM, passing flatus. Not tolerating regular diet.
UTI
urine cx with E. coli
Transition to p.o. antibiotics
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
Hyponatremia -improved.
Hyperlipidemia -hold lovastatin for now.
DM 2 without hyperglycemia -restart metformin. Use low resistance scale insulin. Hemoglobin A1c 7.5
Morbid obesity due to excess calories
DNR
Anticipated Discharge: Today
Subjective/Interval History
-
Date of Service: March 30, 2024
Denies pain
Objective Data
-
Labs:
Laboratory Results
03/30/24
04:56
WBC 9.4
Hgb 12.5
Hct 35.5 L
Plt Count 186
Sodium 134 L
Potassium 4.0
Chloride 100
Carbon Dioxide 25
BUN 22 H
Creatinine 1.3 H
Glucose 138 H
Calcium 8.5
Vital Signs:
Vital Signs
Temp Pulse Resp BP Pulse Ox
98 F 67 18 150/69 98
03/30/24 07:10 03/30/24 07:10 03/30/24 07:10 03/30/24 07:10 03/30/24 07:10
I&O
03/29/24 03/30/24 03/31/24
06:59 06:59 06:59
Intake Total 1250 / 1250 1760 / 1760
Output Total
Balance 1249 / 1249 1760 / 1760
--- NOTE | 2024-03-30 11:40 | W.DCSUMMARY ---
Discharge Summary
Discharge Data
Date of Admission: 03/27/24
Date of Discharge: 03/30/24
-
Pending Results: No
Hospital Course
83-year-old female with past medical history of CKD, hyperlipidemia, diabetes mellitus, morbid obesity, hypertension came to the hospital with small bowel obstruction. Patient was seen by surgery throughout hospitalization and was taken to the OR
for open primary repair with appendectomy. Postop patient symptoms continue to improve and she was able to tolerate regular diet. While she was in the hospital her blood pressure was also elevated and she was instructed to follow-up closely with
her primary care provider for further medication titration. She also had urinary tract infection which grew E. coli. Initially she was treated with IV antibiotic which were later transitioned to p.o. antibiotics prior to discharge. Once her
symptoms continue to improve she was then discharged home with instructions to follow-up with all her physicians outpatient.
Discharge Plan
-
Patient Disposition: Home (Routine Discharge)
Discharge Diagnosis/Procedures: Small bowel obstruction status post open primary repair with appendectomy
Urinary tract infection
Diet: As tolerated and Diabetic, Carb Controlled
Activity: No strenuous activity
Additional Activity: Do not lift over 15 lbs for the next 6 weeks
Bathing Restrictions: OK to Shower
Wound Care: Ok to shower and wash abdomen gently with soap and water. Avoid scrubbing or picking off the glue
Activity Restrictions/Additional Instructions:
Keep your bowel movements soft to avoid straining. We recommend Miralax daily to start.
Referrals:
Ezra Aldridge MD [Family Provider] - in less than 1 week
Manas Rogers MD [Active] - in two to four weeks
Prescriptions:
New
white petrolatum [Hydrophor] 42 % Ointment
1 applic topical DAILYPRN PRN (Reason: Dry skin) Qty: 100 0RF
polyethylene glycol 3350 17 gram Powder In Packet
17 g PO DAILY Qty: 0 0RF
metoprolol succinate 50 mg Tablet Extended Release 24 Hr
50 mg PO BID Qty: 60 0RF
pantoprazole 40 mg Tablet,Delayed Release (Dr/Ec)
40 mg PO DAILY Qty: 30 0RF
acetaminophen [Tylenol Extra Strength] 500 mg Tablet
1,000 mg PO Q6HPRN PRN (Reason: mild pain) Qty: 0 0RF
cefdinir 300 mg capsule
300 mg PO BID Qty: 6 0RF
Continued
metformin 500 mg Tablet
1,000 mg PO .DAILYINAM
metformin 500 mg Tablet
500 mg PO .DAILYINEVENING
niacinamide 500 mg Tablet
500 mg PO DAILY
lovastatin 20 mg Tablet
20 mg PO QPM
cholecalciferol (vitamin D3) [Vitamin D3] 10 mcg (400 unit) Capsule
10 mcg PO BID
aspirin 81 mg Capsule
81 mg PO DAILY
Discontinued
omeprazole 20 mg Capsule,Delayed Release(Dr/Ec)
20 mg PO DAILY
metoprolol tartrate 50 mg Tablet
50 mg PO BID
Patient Comments:
unsure if pt takes Metoprolol tartrate or Metoprolol succinate
Discharge Orders:
Discharge Patient (As Directed); Ordered 03/30/24
Ordered By: Chago Cueva
Discharge Date and Time
Discharge Date/Time: 03/30/24 14:19
Print Language: [id number]
[2024-03-30 11:57] VITALS: BP 138/100
[2024-03-30 11:58] LABS: Glucose - Point of Care 194 mg/dl (70-99)
== END 2024-03-30 14:19 | disposition home or self-care (01) | DRG 398 ==
LOC: 2 SOUTH 23:33
PROVIDERS: Hospitalist; Nurse Practitioner; ADMITTING PHYSICIAN Hospitalist; ATTENDING PHYSICIAN Internal Medicine; CONSULT PHYSICIAN Surgery; EMERGENCY PHYSICIAN Emergency Medicine; FAMILY PHYSICIAN Family Medicine
PROC: 0WQF0ZZ Repair Abdominal Wall, Open Approach (ICD-10-PCS; 2024-03-28)
PROC: 0DTJ0ZZ Resection of Appendix, Open Approach (ICD-10-PCS; 2024-03-28)
DX: K43.6 Other and unspecified ventral hernia with obstruction, without gangrene (principal); N39.0 Urinary tract infection, site not specified; K38.1 Appendicular concretions; E11.22 Type 2 diabetes mellitus with diabetic chronic kidney disease; I12.9 Hypertensive chronic kidney disease with stage 1 through stage 4 chronic kidney disease, or unspecified chronic kidney disease; N18.9 Chronic kidney disease, unspecified; E66.01 Morbid (severe) obesity due to excess calories; B96.20 Unspecified Escherichia coli [E. coli] as the cause of diseases classified elsewhere; Z66 Do not resuscitate; Z68.39 Body mass index [BMI] 39.0-39.9, adult; Z85.42 Personal history of malignant neoplasm of other parts of uterus; Z79.84 Long term (current) use of oral hypoglycemic drugs
CPT/HCPCS: 88304; 74177; 80048; 80053; 81003; 81015; 82962; 83036; 83605; 83690; 85025; 87077; 87086; 87186; 96361; 96365; 97116; 97162; 97166; 97530; 99285; Q9967

== ENCOUNTER → 2024-07-29 11:36 | Outpatient (REF) | payer OTHER, SELFPAY | LOC: RAD 11:36 | PROVIDERS: ATTENDING PHYSICIAN Surgery; FAMILY PHYSICIAN Family Medicine | DX: K43.9 Ventral hernia without obstruction or gangrene (principal) | CPT/HCPCS: 74177; Q9967 ==

== ENCOUNTER → 2024-11-25 08:27 | Outpatient (REF) | payer OTHER, SELFPAY | LOC: RAD 08:27 | PROVIDERS: ATTENDING PHYSICIAN Podiatrist; FAMILY PHYSICIAN Family Medicine | DX: N95.9 Unspecified menopausal and perimenopausal disorder (principal) | CPT/HCPCS: 77080 ==

== ENCOUNTER → 2024-12-20 11:00 | Outpatient (REF) | payer OTHER, SELFPAY | LOC: HWRAD 11:00 | PROVIDERS: ATTENDING PHYSICIAN Internal Medicine Rheumatology; FAMILY PHYSICIAN Family Medicine; REFERRING PHYSICIAN Podiatrist | DX: M13.0 Polyarthritis, unspecified (principal) | CPT/HCPCS: 73110; 73130 ==

== ENCOUNTER → 2024-12-23 08:24 | Outpatient (REF) | payer OTHER, SELFPAY ==
[2024-12-23 10:31] LABS: Blood Urea Nitrogen 32 mg/dl (7-17); Calcium 9.9 mg/dl (8.4-10.2); Carbon Dioxide 24 mmol/L (22-30); Chloride 106 mmol/L (98-107); Glucose 136 mg/dl (70-99); Potassium 4.4 mmol/L (3.5-5.1); Sodium 135 mmol/L (135-145); eGFR 34.15
[2024-12-23 12:02] LABS: Hematocrit 37.9 % (37.0-47.0); Hemoglobin 12.9 g/dL (12.0-16.0); Mean Corp Hgb Conc. 34.0 g/dL (33.0-37.0); Mean Corpuscular Volume 100.3 fL (81.0-99.0); Nucleated Red Blood Cells % 0 %; Platelet Count 203 10^3/uL (130-400); Red Cell Dist. Width 11.6 % (11.5-14.5)
== END ==
LOC: REG 08:24
PROVIDERS: ATTENDING PHYSICIAN Orthopaedic Surgery Hand Surgery; FAMILY PHYSICIAN Family Medicine
DX: Z01.818 Encounter for other preprocedural examination (principal)
CPT/HCPCS: 36415; 80048; 85025; 93005